=== PATIENT | female | born 1940 | race Caucasian/White ===

== ENCOUNTER 2018-06-27 12:17 | Inpatient (IN) | payer MEDICARE, MEDICAID ==
[~2018-06-27] VITALS: Ht 157.5 cm; Wt 58.1 kg
[2018-06-27] MEDS ORDERED: ATORVASTATIN (12:29)
[2018-06-27] MEDS ORDERED: GABAPENTIN (12:29)
[2018-06-27 13:24] LABS: CARBON DIOXIDE 30 mmol/L (21-32); CHLORIDE 104 mmol/L (98-107); CREATININE 0.9 mg/dL (0.6-1.3); GLUCOSE 100 mg/dL (74-106); POTASSIUM 4.1 mmol/L (3.5-5.1); UREA NITROGEN, BLOOD 21 mg/dL (7-18)
[2018-06-27 13:27] LABS: BASOPHILS # (AUTO) 0.1 K/uL (0.0-8.0); BASOPHILS % (AUTO) 0.8 % (0.0-2.0); EOSINOPHILS # (AUTO) 0.2 K/uL (0.0-0.7); EOSINOPHILS % (AUTO) 2.5 % (0.0-7.0); HEMATOCRIT 36.9 % (31.2-41.9); HEMOGLOBIN 12.1 g/dL (10.9-14.3); LYMPHOCYTES # (AUTO) 2.2 K/uL (20.0-40.0); LYMPHOCYTES % (AUTO) 25.4 % (20.5-51.5); MEAN CORPUSCULAR HEMOGLOBIN 20.5 uug (24.7-32.8); MEAN CORPUSCULAR HGB CONC 33 g/dL (32.3-35.6); MEAN CORPUSCULAR VOLUME 62.8 fL (75.5-95.3); MONOCYTES # (AUTO) 0.6 K/uL (2.0-10.0); MONOCYTES % (AUTO) 7.1 % (0.0-11.0); NEUTROPHILS # (AUTO) 5.7 K/uL (1.8-8.9); NEUTROPHILS % (AUTO) 64.2 % (38.5-71.5); PLATELET COUNT (AUTO) 266 K/uL (179-408); RED BLOOD CELL COUNT(AUTO) 5.88 MIL/uL (3.63-4.92); WHITE BLOOD COUNT (AUTO) 8.8 K/uL (3.8-11.8)
[2018-06-27 13:29] LABS: ALANINE AMINOTRANSFERASE 16 U/L (14-59); ALKALINE PHOSPHATASE 58 U/L (50-136); ASPARTATE AMINOTRANSFERASE 15 U/L (15-37); BILIRUBIN,DIRECT 0.1 mg/dL (0.0-0.2); BILIRUBIN,TOTAL 0.6 mg/dL (0.2-1.0); TOTAL PROTEIN, SERUM 7.4 g/dL (6.4-8.2)
[2018-06-27 13:55] LABS: LYMPHOCYTES % (MANUAL) 32 % (20-40); NEUTROPHILS % (MANUAL) 61 % (42-75)
[2018-06-27 13:56] LABS: EOSINOPHILS % (MANUAL) 3 % (0-8); MONOCYTES % (MANUAL) 4 % (2-10)
--- NOTE | 2018-06-27 15:40 | NUR ---
PT TRANSFERED TO FLOOR IN STABLE CONDITION. PT REMAINED CALM AND COMFORTABLE THE WHOLE ER STAY. PT REFUSED PAIN MED AT THIS POINT.
[2018-06-27 16:05] VITALS: BP 163/69
--- NOTE | 2018-06-27 16:20 | NUR ---
ADMIT PT.TO TELE#[id number]. PT.BP ON ARIVAL 163/69 HR 55 , WAS PAGED.
[2018-06-27] MEDS ORDERED: hydrALAZINE HCL 25 MG TABLET PO PRN (16:30)
[2018-06-27] MEDS ORDERED: ENALAPRILAT DIHYDRATE 1.25 MG/1 ML VIAL IV PRN (18:00)
[2018-06-27] MEDS ORDERED: ONDANSETRON 4 MG/2 ML VIAL IV PRN (18:00)
[2018-06-27] MEDS ORDERED: TEMAZEPAM 15 MG CAPSULE PO PRN (18:00)
[2018-06-27] MEDS ORDERED: ACETAMINOPHEN 325 MG TABLET PO PRN (18:00)
--- NOTE | 2018-06-27 18:00 | NUR ---
PT.EATING DINNER,NO S/S OF ACUTE DISTRESS.RUBY ON RAILS CONSULTANT AT BEDSIDE.
--- NOTE | 2018-06-27 19:30 | NUR ---
Rec'd pt in bed awake watching TV. A&O x4. No s/s of acute distress noted. Admitted for syncopal episode status post fall at home and hit her head and lower back. Head CT negative. Lumbar and pelvis CT no acute fx. Denies headache and lower back pain at this time. On RA, no s/s of resp distress noted. Call light within reach. All needs met at this time. Will continue to monitor for change.
[2018-06-27 20:05] VITALS: BP 139/60
[2018-06-27] MEDS: VALSARTAN 40 MG TABLET PO SCH (20:40)
[2018-06-27] MEDS ORDERED: DOCUSATE SODIUM 250 MG CAPSULE PO SCH (21:00)
[2018-06-27] MEDS ORDERED: DOCUSATE SODIUM 100 MG CAPSULE PO SCH (21:00)
--- NOTE | 2018-06-27 22:30 | NUR ---
Relayed to Dr. Khan patient refused Diovan 40mg as ordered and only took 20mg. No new orders at this time.
[2018-06-28 00:51] VITALS: BP 125/69
[2018-06-28 04:00] VITALS: BP 120/64
[2018-06-28 06:22] LABS: BASOPHILS # (AUTO) 0.1 K/uL (0.0-8.0); BASOPHILS % (AUTO) 0.7 % (0.0-2.0); EOSINOPHILS # (AUTO) 0.2 K/uL (0.0-0.7); EOSINOPHILS % (AUTO) 2.3 % (0.0-7.0); HEMATOCRIT 35.9 % (31.2-41.9); HEMOGLOBIN 11.5 g/dL (10.9-14.3); LYMPHOCYTES # (AUTO) 2.4 K/uL (20.0-40.0); LYMPHOCYTES % (AUTO) 28.8 % (20.5-51.5); MEAN CORPUSCULAR HEMOGLOBIN 20.2 uug (24.7-32.8); MEAN CORPUSCULAR HGB CONC 32 g/dL (32.3-35.6); MONOCYTES # (AUTO) 0.6 K/uL (2.0-10.0); MONOCYTES % (AUTO) 7.1 % (0.0-11.0); NEUTROPHILS % (AUTO) 61.1 % (38.5-71.5); PLATELET COUNT (AUTO) 276 K/uL (179-408); RED BLOOD CELL COUNT(AUTO) 5.71 MIL/uL (3.63-4.92); WHITE BLOOD COUNT (AUTO) 8.3 K/uL (3.8-11.8)
[2018-06-28 06:35] LABS: IRON, SERUM 57 ug/dL (50-175)
--- NOTE | 2018-06-28 06:39 | NUR ---
Pt in bed asleep. Easily arousable to name. No s/s of distress noted. Tolerated PO Protonix well. DVT pumps in place and del well also. Denies pain at this time. Able to del BRP throughout shift. No episode of syncopal episode. Denies headache or low back pain. All needs met. Call light within reach. Will endorse to oncoming nurse.
[2018-06-28 06:42] LABS: ALANINE AMINOTRANSFERASE 14 U/L (14-59); ALKALINE PHOSPHATASE 54 U/L (50-136); ASPARTATE AMINOTRANSFERASE 13 U/L (15-37); BILIRUBIN,TOTAL 0.7 mg/dL (0.2-1.0); CARBON DIOXIDE 29 mmol/L (21-32); CHLORIDE 105 mmol/L (98-107); CHOLESTEROL 142 mg/dL (<200); CREATININE 0.9 mg/dL (0.6-1.3); GLUCOSE 100 mg/dL (74-106); HDL CHOLESTEROL 50 mg/dL (40-60); MAGNESIUM 2.2 mg/dL (1.8-2.4); PHOSPHOROUS 2.8 mg/dL (2.5-4.9); POTASSIUM 3.9 mmol/L (3.5-5.1); TOTAL PROTEIN, SERUM 6.8 g/dL (6.4-8.2); TRIGLYCERIDES 88 MG/DL (30-150); UREA NITROGEN, BLOOD 16 mg/dL (7-18)
[2018-06-28 06:47] LABS: THYROID STIMULATING HORMONE 1.669 mIU/mL (0.358-3.740)
[2018-06-28] MEDS ORDERED: PANTOPRAZOLE SODIUM 40 MG TABLET.DR PO SCH (07:00)
[2018-06-28] MEDS ORDERED: TEMAZEPAM 7.5 MG CAPSULE PO PRN (08:00)
[2018-06-28] MEDS: VALSARTAN 40 MG TABLET PO SCH (08:13)
--- NOTE | 2018-06-28 08:30 | NUR ---
ALERT ORIENTED AND VERBALLY RESPONSIVE DENIES PAIN OR DISCOMFORTS AT THIS TIME DUE MEDICATIONS GIVEN AND TOLERATED WELL BLOOD PRESSURE WAS 156/57 CALL LIGHTS ARE WITHIN EASY REACH AND WILL CONTINUE TO OBSERVE PATIENT AND PROVIDE SAFE AND THERAPEUTIC ENVIRONMENT AT ALL TIMES.
--- NOTE | 2018-06-28 11:00 | NUR ---
PHYSICAL THERAPY HERE SEEN PATIENT AND SHE AMBULATED WITH THE FRONT WHEEL WALKER IN THE ANTHONY WAY AND TOLERATED WELL.
[2018-06-28 11:06] VITALS: BP 111/39
--- NOTE | 2018-06-28 13:06 | NUR ---
PATIENT SEEN BY THE HORSE RACING ANALYST WITH NEW ORDERS AND NOTED.
[2018-06-28 15:06] VITALS: BP 105/48
--- NOTE | 2018-06-28 16:28 | NUR ---
PATIENTS SISTER ANDREY AWARE THAT PATIENT WILL BE DISCHARGED HOME TODAY STATED WILL BE HERE TO PICK PATIENT UP
--- NOTE | 2018-06-28 17:35 | NUR ---
PATIENT DISCHARGED PICKED UP BY HER SISTER ANDREY IN SATISFACTORY CONDITION WITH ALL OF HER PERSONAL BELONGINGS STATED WILL CALL DR ANDERSEN AND WILL FOLLOW UP WITH HIM INSTRUCTED.
== END 2018-06-28 17:35 | disposition home or self-care (01) | DRG 84 ==
LOC: ER 12:17 → TELE 15:31
PROVIDERS: ADMIT Internal Medicine; ATTEND Internal Medicine
DX: S06.9X9A Unspecified intracranial injury with loss of consciousness of unspecified duration, initial encounter (principal); W17.89XA Other fall from one level to another, initial encounter; Y93.89 Activity, other specified; Y92.012 Bathroom of single-family (private) house as the place of occurrence of the external cause; R55 Syncope and collapse; G62.9 Polyneuropathy, unspecified; E78.5 Hyperlipidemia, unspecified; M16.0 Bilateral primary osteoarthritis of hip; I11.9 Hypertensive heart disease without heart failure; M50.31 Other cervical disc degeneration, high cervical region; N28.1 Cyst of kidney, acquired; M85.80 Other specified disorders of bone density and structure, unspecified site; D50.9 Iron deficiency anemia, unspecified; M48.061 Spinal stenosis, lumbar region without neurogenic claudication; I70.0 Atherosclerosis of aorta; Z90.710 Acquired absence of both cervix and uterus; Z85.42 Personal history of malignant neoplasm of other parts of uterus
CPT/HCPCS: 36415; 70030-TC; 70450; 71045; 72125; 72131; 72192; 83550; 83735; 84100; 84443; 85025; 85730; 93005; 93307; 93880; A4663; G0378